=== PATIENT | female | born 1990 | race Caucasian/White ===

== ENCOUNTER → 2016-11-13 | Outpatient (CLI) | payer OTHER ==
[2016-11-13 08:58] LABS: CHCM 33.8; HCT 35.5 % (34.0-46.0); HDW 2.47; MCHC 33.8 g/dL (31.0-37.0); MCV 91.9 fL (80.0-100.0); Mean Platelet Volume 6.3; RBC 3.86 m/uL (3.80-5.40); RDW 11.9 % (11.5-15.5); WBC 15.6 k/uL (3.8-10.6)
== END | disposition home or self-care (01) ==
LOC: LABWHC1 07:15
PROVIDERS: ATTEND Obstetrics & Gynecology
DX: Z34.02 Encounter for supervision of normal first pregnancy, second trimester (principal); Z3A.00 Weeks of gestation of pregnancy not specified
CPT/HCPCS: 36415; 82950; 85027

== ENCOUNTER → 2016-11-20 | Outpatient (CLI) | payer OTHER ==
[2016-11-20 11:12] LABS: Glucose 3 Hour, Gest 63 mg/dL
== END | disposition home or self-care (01) ==
LOC: LABWHC1 07:13
PROVIDERS: ATTEND Obstetrics & Gynecology
DX: O99.810 Abnormal glucose complicating pregnancy (principal); Z3A.00 Weeks of gestation of pregnancy not specified
CPT/HCPCS: 36415; 82951; 82952

== ENCOUNTER 2017-02-15 02:57 | Inpatient (IN) | payer OTHER ==
[2017-02-15] MEDS ORDERED: TERBUTALINE 1 MG/ML VIAL SQ PRN (03:37)
[2017-02-15] MEDS ORDERED: OXYTOCIN 10 UNIT/ML 1 ML VIAL IM PRN (03:37)
[2017-02-15] MEDS ORDERED: METHYLERGONOVINE 0.2 MG/ML 1 ML AMP IM PRN (03:37)
[2017-02-15] MEDS ORDERED: LIDOCAINE 1% (PF) 10 MG/ML (30 ML SDV) SQ PRN (03:37)
[2017-02-15] MEDS ORDERED: CARBOPROST TROMETHAMINE 250 MCG/ML 1 ML AMP IM PRN (03:37)
[2017-02-15 03:54] LABS: Basophils # (A) 0.1 k/uL (0-0.2); Basophils % (A) 0 %; CH 27.3; CHCM 33.1; Eosinophils # (A) 0.1 k/uL (0-0.7); Eosinophils % (A) 1 %; HCT 36.3 % (34.0-46.0); HDW 2.93; HGB 11.8 gm/dL (11.4-16.0); Luc # (Auto) 0.26; Luc % (Auto) 1; Lymphocytes # (A) 2.1 k/uL (1.0-4.8); Lymphocytes % (A) 11 %; MCHC 32.6 g/dL (31.0-37.0); MCV 82.6 fL (80.0-100.0); Mean Platelet Volume 6.7; Monocytes # (A) 0.6 k/uL (0-1.0); Monocytes % (A) 3 %; Neutrophils # (A) 16.9 k/uL (1.3-7.7); Neutrophils % (A) 84 %; RBC 4.39 m/uL (3.80-5.40); RDW 12.9 % (11.5-15.5); WBC 20.1 k/uL (3.8-10.6); WBC (Perox) 20.68
[2017-02-15 03:57] VITALS: BMI 41.1
[2017-02-15] MEDS ORDERED: SODIUM CHLORIDE 0.9% 100 ML BAG ONE (04:14)
[2017-02-15] MEDS ORDERED: fentaNYL (PF) 50 MCG/ML 5 ML AMP ONE (04:14)
[2017-02-15] MEDS ORDERED: BUPIVACAINE (PF) 0.25% 30 ML VIAL ONE (04:14)
--- NOTE | 2017-02-15 05:39 | P.HPOB ---
History of Present Illness H&P Date: 02/15/17 Chief Complaint: Labor 27-year-old presents at 39 weeks and labor. Her cervix is 4 cm dilated, 90% effaced, and -2 station. She is rip every 2-4 minutes. heart tones 135-140 with moderate variability and reactive. Review of Systems All systems: negative Constitutional: Denies chills, Denies fever Eyes: denies blurred vision, denies pain Ears, nose, mouth and throat: Denies headache, Denies sore throat Cardiovascular: Denies chest pain, Denies shortness of breath Respiratory: Denies cough Gastrointestinal: Denies abdominal pain, Denies diarrhea, Denies nausea, Denies vomiting Genitourinary: Denies dysuria, Denies hematuria Musculoskeletal: Denies myalgias Integumentary: Denies pruritus, Denies rash Neurological: Denies numbness, Denies weakness Psychiatric: Denies anxiety, Denies depression Endocrine: Denies fatigue, Denies weight change Past Medical History Past Medical History: No Reported History Additional Past Medical History / Comment(s): pilonidal cyst. Obstetric history : This is her first and she's had care with me since 12 weeks gestation. Blood type is O+, amylase negative, rubella immune, treponemal antibody negative, HIV negative, hepatitis B negative, GBS negative. History of Any Multi-Drug Resistant Organisms: None Reported Past Surgical History: No Surgical Hx Reported Additional Past Surgical History / Comment(s): wisdom teeth Additional Past Anesthesia/Blood Transfusion Reaction / Comment(s): never has had general anesthesia Past Psychological History: Anxiety Additional Psychological History / Comment(s): VERY ANXIOUS WITH IV STARTS AND BLOOD DRAWS Smoking Status: Current every day smoker Past Alcohol Use History: None Reported Additional Past Alcohol Use History / Comment(s): started smoking at age 15 Past Drug Use History: None Reported - Past Family History Mother Family Medical History: No Reported History Father Family Medical History: No Reported History Medications and Allergies Home Medications Medication Instructions Recorded Confirmed Type Pnv,Calcium 72/Iron/Folic Acid 1 tab PO DAILY 02/15/17 02/15/17 History [ Plus Tablet] Allergies Allergy/AdvReac Type Severity Reaction Status Date / Time sulfamethoxazole Allergy Unknown Verified 02/15/17 03:35 [From ] trimethoprim [From Septra] Allergy Unknown Verified 02/15/17 03:35 Exam Osteopathic Statement: *. No significant issues noted on an osteopathic structural exam other than those noted in the History and Physical/Consult. - Vital Signs Vital signs: Vital Signs Temp Pulse Resp BP 02/15/17 03:49 95.4 F L 104 H 16 150/97 02/15/17 03:20 95.4 F L 104 H 16 150/97 Intake and Output 02/14/17 02/14/17 02/15/17 14:59 22:59 06:59 Other: Weight 108.862 kg Patient Weight 02/15/17 06:59 Weight 108.862 kg Heart: Regular rate and rhythm Lungs: Clear to auscultation bilaterally Abdomen: Soft, nontender Extremities: Negative Homans sign Results Result Diagrams: 02/15/17 03:50 Abnormal Lab Results - Last 24 Hours (Table) 02/15/17 Range/Units 03:50 WBC 20.1 H (3.8-10.6) k/uL Neutrophils # 16.9 H (1.3-7.7) k/uL Assessment and Plan (1) Normal labor Status: Acute Plan: 1. Admit to family place 2. Pain control 3. Anticipate normal vaginal delivery
[2017-02-15] MEDS: LACTATED RINGERS 1,000 ML IV SCH ×2 (07:15→19:43)
[2017-02-15] MEDS ORDERED: diphenhydrAMINE 50 MG CAP PO PRN (08:26)
[2017-02-15] MEDS ORDERED: diphenhydrAMINE 25 MG CAP PO PRN (08:26)
[2017-02-15] MEDS ORDERED: LANOLIN CREAM 5 GM TUBE TOPICAL PRN (08:26)
[2017-02-15] MEDS ORDERED: SIMETHICONE 80 MG CHEWABLE PO PRN (08:26)
[2017-02-15] MEDS ORDERED: ZOLPIDEM 5 MG TAB PO PRN (08:26)
[2017-02-15] MEDS ORDERED: Acetaminophen-Codeine 300-30mg TAB PO PRN ×2 (08:26)
[2017-02-15] MEDS ORDERED: diphenhydrAMINE 50 MG/ML 1 ML VIAL IVP PRN ×2 (08:26)
[2017-02-15] MEDS ORDERED: ACETAMINOPHEN TAB 325 MG TAB PO PRN (08:26)
[2017-02-15] MEDS ORDERED: WITCH HAZEL 1 EACH MED..PAD TOPICAL PRN (08:26)
[2017-02-15] MEDS ORDERED: HYDROCORTISONE 2.5% RECTAL CREAM 30 GM TUBE RECTAL PRN (08:26)
[2017-02-15] MEDS ORDERED: BENZOCAINE SPRAY 57GM TOPICAL PRN (08:26)
--- NOTE | 2017-02-15 08:29 | P.PROBDLV ---
Vaginal Delivery Note - . Vaginal Delivery Note: 27-year-old presented at 39 weeks gestation in labor. Her cervix was 5 cm dilated, 90% effaced, -1 station. She is rip every 2-4 minutes. heart tones 130-135 with moderate variability and reactive. She spontaneously ruptured at 3:23 AM clear fluid noted. She did get an epidural and was comfortable. She was complete at 7:34 AM, pushed and delivered a viable male infant over intact perineum under epidural anesthesia at 8:10 AM. Head delivered OA, anterior shoulder delivered gentle downward traction followed by posterior shoulder and rest of body. Nose mouth bulb suctioned, cord clamped and cut, infant placed mother's abdomen. Apgars 9, 9, weight 8 lbs. 7 oz. Placenta delivered spontaneously, intact with three-vessel cord at 8 :13 AM. Vagina, cervix, and perineum were inspected. Second degree midline laceration was repaired with 3-0 Vicryl. Estimated blood loss 250 mL. The mother and baby in stable condition.
[2017-02-15] MEDS ORDERED: OXYTOCIN 20 UNITS/1000 ML NS 1,000 ML IV SCH (08:30)
[2017-02-15] MEDS ORDERED: BUPIVACAINE (PF) 0.25% 25 ML, fentaNYL (PF) 200 MCG in SODIUM CHLORIDE 0.9% 71 ML EPIDURAL ONE (10:17)
[2017-02-15] MEDS: IBUPROFEN 600 MG TAB PO PRN ×2 (11:46→17:47)
[2017-02-15] MEDS: SENNOSIDES-DOCUSATE SODIUM 1 EACH TAB PO SCH (19:42)
[2017-02-16] MEDS: IBUPROFEN 600 MG TAB PO PRN (00:18)
[2017-02-16 00:57] VITALS: RESP 16
--- NOTE | 2017-02-16 07:50 | P.PNOBGVD ---
Subjective - Subjective Patient reports: Reports appetite normal, Reports voiding normally, Reports pain well controlled, Reports ambulating normally : doing well Objective - Latest Vital Signs Latest vital signs: Vital Signs Temp Pulse Resp BP 02/16/17 00:00 98.5 F 16 111/71 02/15/17 20:00 98.2 F 105 H 18 149/96 02/15/17 16:00 98.4 F 94 16 130/70 02/15/17 12:00 98.5 F 113 H 16 120/80 02/15/17 10:24 98.1 F 106 H 16 133/72 02/15/17 09:54 98.2 F 110 H 16 136/65 02/15/17 09:24 116 H 16 152/67 02/15/17 09:09 120 H 16 146/67 02/15/17 08:54 117 H 16 141/70 02/15/17 08:39 127 H 16 143/69 02/15/17 08:24 98.4 F 126 H 16 138/63 - Exam Lungs: bilateral: normal Chest: Normal S1, Normal S2 Extremities: Present: normal Abdomen: Present: normal appearance, soft Uterus: Present: normal, firm Assessment and Plan (1) Normal labor Narrative/Plan: Post day #1. Patient is resting without complaints and wishes to go home. Vital signs are stable she is afebrile. Uterus is firm nontender she's having normal lochia. My impression this is a normal course. Plan is to continue routine care discharge home later today. Current Visit: Yes Status: Acute Code(s): O80 - ENCOUNTER FOR FULL-TERM UNCOMPLICATED DELIVERY; Z37.9 - OUTCOME OF DELIVERY, UNSPECIFIED SNOMED Code(s ): 34810338
--- NOTE | 2017-02-16 07:52 | P.DS ---
Providers Date of admission: 02/15/17 03:21 Expected date of discharge: 02/16/17 Attending physician: Ramya Sood Primary care physician: Ramya Sood - Discharge Diagnosis(es) (1) Normal labor Current Visit: Yes Status: Acute Hospital Course: Please see dictated H&P per Dr. Sood on this patient's admission. Brief summary this pleasant 27-year-old 1 para 0 female admitted to labor and delivery in active labor. She does go on to have a vaginal delivery of viable male . Please see dictated delivery note. day 1 patient is felt to be stable for discharge home follow up with Dr. Sood in 6 weeks. Procedures: Normal spontaneous vaginal delivery. Patient Condition at Discharge: Good Plan - Discharge Summary New Discharge Prescriptions: Acetaminophen-Codeine 300-30mg [Tylenol w/codeine #3] 1 - 2 each PO Q4HR PRN # 30 tab PRN Reason: Mild Pain exceeding Tylenol Ibuprofen [Motrin] 600 mg PO Q6HR PRN #40 tab PRN Reason: Mild Pain Or Fever >= 100.5 Discharge Medication List Pnv,Calcium 72/Iron/Folic Acid [ Plus Tablet] 1 tab PO DAILY 02/15/17 [ History] Acetaminophen-Codeine 300-30mg [Tylenol w/codeine #3] 1 - 2 each PO Q4HR PRN # 30 tab 02/16/17 [Rx] Ibuprofen [Motrin] 600 mg PO Q6HR PRN #40 tab 02/16/17 [Rx] Follow up Appointment(s)/Referral(s): Ramya Sood DO [Primary Care Provider] - 03/29/17 10:45 am Patient Instructions/Handouts: Vaginal Delivery (DC) Activity/Diet/Wound Care/Special Instructions: No intercourse or anything per vagina for 6 weeks. Please call if any fever, chills, excessive vaginal bleeding, and/or abdominal pain. Discharge Disposition: HOME SELF-CARE
[2017-02-16] MEDS: SENNOSIDES-DOCUSATE SODIUM 1 EACH TAB PO SCH (08:21)
[2017-02-16 09:13] VITALS: BP 130/81; PULSE 90; TEMP 98.1
== END 2017-02-16 10:30 | disposition home or self-care (01) | DRG 775 ==
LOC: FBPOP 02:57 → 4FBP 03:21
PROVIDERS: ADMIT Obstetrics & Gynecology; ATTEND Obstetrics & Gynecology
PROC: 10E0XZZ Delivery of Products of Conception, External Approach (ICD-10-PCS; principal; 2017-02-15)
PROC: 0KQM0ZZ Repair Perineum Muscle, Open Approach (ICD-10-PCS; 2017-02-15)
PROC: 00HU33Z Insertion of Infusion Device into Spinal Canal, Percutaneous Approach (ICD-10-PCS; 2017-02-15)
PROC: 3E0R3CZ (ICD-10-PCS; 2017-02-15)
DX: O99.344 Other mental disorders complicating childbirth (principal); F41.9 Anxiety disorder, unspecified; Z37.0 Single live birth; O99.334 Smoking (tobacco) complicating childbirth; O70.1 Second degree perineal laceration during delivery; Z3A.39 39 weeks gestation of pregnancy; Z88.2 Allergy status to sulfonamides; Z88.8 Allergy status to other drugs, medicaments and biological substances
CPT/HCPCS: 85025; 88307